=== PATIENT | male | born 1955 | race Caucasian/White ===

== ENCOUNTER → 2022-03-24 08:06 | Outpatient (BNVA) | payer MEDICARE, SELFPAY | PROVIDERS: PCP Internal Medicine; Visit Provider Psychiatry & Neurology Neurology | DX: G51.0 Bell's palsy (principal); G47.9 Sleep disorder, unspecified; G47.00 Insomnia, unspecified; R06.83 Snoring; I25.2 Old myocardial infarction; Z95.5 Presence of coronary angioplasty implant and graft | CPT/HCPCS: 99202 ==

== ENCOUNTER 2022-05-21 11:00 | Outpatient (RCR) | payer MEDICARE, SELFPAY | END 2022-05-21 11:35 | disposition home or self-care (01) | LOC: HO.PT 11:00 | PROVIDERS: Visit Provider Psychiatry & Neurology Neurology | DX: G51.0 Bell's palsy (principal); G47.9 Sleep disorder, unspecified; G47.00 Insomnia, unspecified; R06.83 Snoring | CPT/HCPCS: 97110; 97112; 97140; 97162 ==